=== PATIENT | female | born 1960 | race African-American/Black ===

== ENCOUNTER 2017-03-03 11:30 | Inpatient (IN) | payer OTHER ==
[2017-03-03 11:22] VITALS: BMI 27.8
[2017-03-10] MEDS ORDERED: ROPIVICAINE 0.2%/MORPH PF/KETOROLAC - 51ML DISP.SYRINGE IA ONE ×2 (06:14→06:57)
[2017-03-10] MEDS ORDERED: GABAPENTIN 300 MG CAPSULE (FP) PO ONE (06:14)
[2017-03-10] MEDS ORDERED: CELECOXIB 200 MG CAPSULE PO ONE (06:14)
[2017-03-10] MEDS ORDERED: oxyCODONE HCL 10 MG SUSTAINED ACTING TABLET PO ONE (06:14)
[2017-03-10] MEDS ORDERED: TRANEXAMIC ACID 1000 MG/10 ML VIAL IVPUSH ONE (06:14)
[2017-03-10] MEDS ORDERED: CEFAZOLIN 1 GM/D5W 50 ML IVPB ONE (06:14)
[2017-03-10] MEDS ORDERED: GABAPENTIN 300 MG CAPSULE (FP) ONE (06:23)
[2017-03-10] MEDS ORDERED: oxyCODONE HCL 10 MG SUSTAINED ACTING TABLET ONE (06:23)
[2017-03-10] MEDS ORDERED: CELECOXIB 200 MG CAPSULE ONE (06:24)
[2017-03-10] MEDS ORDERED: SODIUM CHLORIDE 0.9% P/F 10 ML VIAL IJ ONE (06:52)
[2017-03-10] MEDS ORDERED: DEXAMETHASONE SOD PHOSPHATE/PF 10 MG/ML SDV ONE (06:52)
[2017-03-10] MEDS ORDERED: MIDAZOLAM HCL 2 MG/2 ML SINGLE DOSE VIAL ONE ×2 (06:52→10:20)
[2017-03-10] MEDS ORDERED: ROPIVACAINE HCL 0.5% 30ML VIAL ONE (06:52)
[2017-03-10] MEDS ORDERED: TRANEXAMIC ACID 1000 MG/10 ML VIAL ONE ×2 (06:57→07:41)
[2017-03-10] MEDS ORDERED: ceFAZolin SODIUM 1 GM VIAL ONE ×2 (06:57→07:41)
[2017-03-10] MEDS ORDERED: VANCOMYCIN 1,000 MG VIAL (RESTRICTED TO ID ONLY) ONE (06:58)
[2017-03-10] MEDS ORDERED: SUCCINYLCHOLINE CHLORIDE 200 MG/10 ML VIAL ONE (07:41)
[2017-03-10] MEDS ORDERED: PROPOFOL 20 ML ONE ×3 (07:41)
[2017-03-10] MEDS ORDERED: DEXAMETHASONE SOD PHOSPHATE 4 MG/1 ML VIAL ONE (07:41)
[2017-03-10] MEDS ORDERED: ONDANSETRON 4 MG/2 ML VIAL ONE (07:41)
[2017-03-10] MEDS ORDERED: BUPIVACAINE HCL/PF 0.5% (5MG/ML) 10 ML VIAL ONE (08:00)
--- NOTE | 2017-03-10 08:06 | HP ---
Admitting History and Physical - Past Medical History Cardiovascular: Yes: HTN, Other (dyspnea on exertion - cardiology cleared) Pulmonary: Yes: COPD - Smoking History Smoking history: Current every day smoker Have you smoked in the past 12 months: Yes Aproximately how many cigarettes per day: 6 - Alcohol/Substance Use Hx Alcohol Use: Yes (OCCASIONAL) Home Medications - Allergies Allergies/Adverse Reactions: Allergies Allergy/AdvReac Type Severity Reaction Status Date / Time No Known Drug Allergies Allergy Verified 03/10/17 06:16 - Home Medications Home Medications: Ambulatory Orders Atorvastatin Ca [Lipitor] 40 mg PO DAILY 03/03/17 Budesonide/Formeterol Fumarate [SYMBICORT 160/4.5mcg -] 1 inh IH DAILY 03/03/17 Cholecalciferol (Vitamin D3) [Vitamin D3] 50,000 unit PO WEEKLY 03/03/17 Losartan/Hydrochlorothiazide [Hyzaar 50-12.5 Tablet] 1 each PO DAILY 03/03/17 Omeprazole 40 mg PO DAILY 03/03/17 Oxycodone HCl/Acetaminophen [Percocet 10-325 mg Tablet] 1 each PO Q4H PRN Ranitidine HCl [Zantac] 300 mg PO HS 03/03/17 Tiotropium [place] [Spiriva Respimat] 4 gm IH DAILY 03/03/17 Triamcinolone 0.025% Cream [Aristocort] 1 applic TP BID 03/03/17 Zolpidem Tartrate [Ambien] 10 mg PO HS 03/03/17 Physical Examination Vital Signs: Vital Signs Temperature 97.7 F 03/10/17 06:20 Pulse Rate 100 H 03/10/17 06:20 Respiratory Rate 20 03/10/17 06:20 Blood Pressure 114/82 03/10/17 06:20 O2 Sat by Pulse Oximetry (%) 97 03/10/17 06:30 Constitutional: Yes: Well Nourished, No Distress, Calm Eyes: Yes: WNL, Conjunctiva Clear HENT: Yes: WNL, Atraumatic, Normocephalic Neck: Yes: WNL, Supple Cardiovascular: Yes: WNL, Regular Rate and Rhythm Respiratory: Yes: WNL, Regular Gastrointestinal: Yes: WNL, Soft ...Rectal Exam: Yes: Deferred Musculoskeletal: Yes: Joint Stiffness, Joint Swelling, Muscle Pain, Muscle Weakness Extremities: Yes: WNL Edema: No Peripheral Pulses WNL: Yes Integumentary: Yes: WNL Neurological: Yes: WNL, Alert, Oriented ...Motor Strength: WNL Psychiatric: Yes: WNL, Alert, Oriented Labs: reviewed in chart Imaging - Results X-ray: Image Reviewed Assessment/Plan 56yo female with L knee OA for L TKA
[2017-03-10] MEDS ORDERED: oxyCODONE HCL 5 MG TABLET PO PRN (09:26)
[2017-03-10] MEDS ORDERED: ONDANSETRON 4 MG/2 ML VIAL IVPUSH PRN (09:26)
[2017-03-10] MEDS ORDERED: LACTATED RINGERS SOLUTION 1,000 ML IV SCH ×2 (09:30→11:15)
[2017-03-10] MEDS ORDERED: GABAPENTIN 300 MG CAPSULE (FP) PO SCH (10:00)
[2017-03-10] MEDS ORDERED: ONDANSETRON 4 MG/2 ML VIAL IVPB PRN (11:06)
[2017-03-10] MEDS ORDERED: MAG HYDROX/AL HYDROX/SIMETH 30 ML UNIT-DOSE CUP PO PRN (11:06)
[2017-03-10] MEDS ORDERED: MAGNESIUM HYDROX 2400MG/30ML ORAL SUSPENSION 30 ML CUP PO PRN (11:06)
--- NOTE | 2017-03-10 11:06 | OP ---
Operative Note - Note: Operative Date: 03/10/17 Pre-Operative Diagnosis: left knee DJD Operation: left TKA Post-Operative Diagnosis: Same as Pre-op Surgeon: Derick Thomas Dining Service Supervisor: Carlita Shah Anesthesia: Spinal Estimated Blood Loss (mls): 50
[2017-03-10] MEDS ORDERED: traMADol HCL 50 MG TABLET PO SCH (11:15)
[2017-03-10] MEDS ORDERED: KETOROLAC TROMETHAMINE 30 MG/1 ML VIAL IVPUSH SCH (11:15)
[2017-03-10] MEDS: traMADol HCL 50 MG TABLET PO SCH (12:00)
[2017-03-10] MEDS ORDERED: KETOROLAC TROMETHAMINE 30 MG/1 ML VIAL ONE (12:03)
[2017-03-10] MEDS ORDERED: traMADol HCL 50 MG TABLET ONE (12:04)
[2017-03-10] MEDS: oxyCODONE HCL 10 MG SUSTAINED ACTING TABLET PO SCH ×2 (15:35→21:31)
[2017-03-10] MEDS: CEFAZOLIN 1 GM/D5W 50 ML IVPB SCH (16:22)
[2017-03-10] MEDS: oxyCODONE HCL 5 MG TABLET PO PRN ×2 (16:29→20:49)
[2017-03-10] MEDS: ACETAMINOPHEN 325 MG TABLET (FP) PO SCH (17:55)
[2017-03-10] MEDS: KETOROLAC TROMETHAMINE 30 MG/1 ML VIAL IVPUSH SCH (17:56)
[2017-03-10] MEDS ORDERED: ACETAMINOPHEN 325 MG TABLET (FP) PO SCH (18:00)
[2017-03-10] MEDS ORDERED: PT OWN MED DRAWER 7, Y5N ONE (21:29)
[2017-03-10] MEDS: GABAPENTIN 300 MG CAPSULE (FP) PO SCH (21:30)
[2017-03-10] MEDS: RANITIDINE HCL 150 MG TABLET (FP) PO SCH (21:30)
[2017-03-10] MEDS: ASCORBIC ACID 500 MG TABLET (FP) PO SCH (21:30)
[2017-03-10] MEDS: CELECOXIB 200 MG CAPSULE PO SCH (21:31)
[2017-03-10] MEDS: TRIAMCINOLONE ACET 0.025% CREAM 15 GM TUBE TP SCH (21:32)
[2017-03-10] MEDS: SENNOSIDES/DOCUSATE COMBO (SENNA PLUS) TABLET (UD) PO SCH (21:33)
[2017-03-11] MEDS: KETOROLAC TROMETHAMINE 30 MG/1 ML VIAL IVPUSH SCH ×3 (00:23→12:37)
[2017-03-11] MEDS: traMADol HCL 50 MG TABLET PO SCH ×5 (00:24→23:43)
[2017-03-11] MEDS: ACETAMINOPHEN 325 MG TABLET (FP) PO SCH ×5 (00:25→23:43)
[2017-03-11] MEDS: CEFAZOLIN 1 GM/D5W 50 ML IVPB SCH (01:15)
--- NOTE | 2017-03-11 08:50 | PN ---
Progress Note (short form) - Note Progress Note: S: Pt. in a chair, eating breakfast. No c/o O: VAS 5/10 A/P: POD #1 s/p left tkr with adductor canal cath and selective tibial n. block. doing well. 1. Cath intact 2. Continue po pain meds as ordered
[2017-03-11 08:52] LABS: MCH 32.8 pg (25.7-33.7); MCHC 35.1 g/dl (32.0-36.0); MEAN CELL VOLUME 93.6 fl (80-96); MEAN PLT VOLUME 8.6 fl (7.5-11.1); PLATELET COUNT 170 K/MM3 (134-434); RDW 12.6 % (11.6-15.6); WHITE BLOOD COUNT 8.8 K/mm3 (4.0-10.0)
[2017-03-11] MEDS: MULTIVITAMINS (DAILY MVI) TABLET (FP) PO SCH (09:28)
[2017-03-11] MEDS: LOSARTAN 50MG/HCTZ 12.5MG 1 TAB (FP) PO SCH (09:28)
[2017-03-11] MEDS: CELECOXIB 200 MG CAPSULE PO SCH ×2 (09:28→21:19)
[2017-03-11] MEDS: GABAPENTIN 300 MG CAPSULE (FP) PO SCH ×2 (09:29→21:19)
[2017-03-11] MEDS: oxyCODONE HCL 10 MG SUSTAINED ACTING TABLET PO SCH ×2 (09:29→21:19)
[2017-03-11] MEDS: SENNOSIDES/DOCUSATE COMBO (SENNA PLUS) TABLET (UD) PO SCH ×2 (09:30→21:19)
[2017-03-11] MEDS: ASPIRIN 325 MG TABLET PO SCH (09:31)
[2017-03-11] MEDS: ATORVASTATIN CA 40 MG TABLET (FP) PO SCH (09:31)
[2017-03-11] MEDS: ASCORBIC ACID 500 MG TABLET (FP) PO SCH ×2 (09:31→21:19)
[2017-03-11 09:56] LABS: COCKROFT - GAULT 71.604; CREATININE 0.9 mg/dL (0.55-1.02)
[2017-03-11] MEDS ORDERED: PATIENT'S OWN MEDICATION (NON-FORMULARY) (Tiotropium Bromide [Spiriva Respimat] 4 GM) IH SCH (10:00)
[2017-03-11] MEDS: PANTOPRAZOLE 40 MG TABLET (FP) PO SCH (12:30)
[2017-03-11] MEDS: oxyCODONE HCL 5 MG TABLET PO PRN ×2 (12:38→18:08)
--- NOTE | 2017-03-11 13:11 | PN ---
Progress Note (short form) - Note Progress Note: Pt seen and examined. Comfortable. C/o diarrhea this morning. Afebrile Selected Entries 03/11/17 05:37 Temperature 97.8 F Pulse Rate 81 Respiratory 18 Rate Blood Pressure 121/78 Laboratory Tests 03/11/17 03/11/17 08:00 08:00 WBC 8.8 Hgb 11.6 Hct 33.2 Plt Count 170 Sodium 136 Potassium 3.4 L Chloride 100 Carbon Dioxide 27 Anion Gap 9 BUN 19 H Creatinine 0.9 Random Glucose 103 Gen: NAD LLE: c/d/i, NVID A/P 56yo female POD#1 s/p L TKA 1. PT/OOB - WBAT LLE 2. D/C to rehab tomorrow
[2017-03-11] MEDS ORDERED: PT OWN MED DRAWER 7, Y5N ONE ×2 (14:07→21:15)
[2017-03-11] MEDS: TRIAMCINOLONE ACET 0.025% CREAM 15 GM TUBE TP SCH ×2 (14:12→21:20)
[2017-03-11] MEDS ORDERED: POTASSIUM CHLORIDE TABS 20 MEQ TABLET.ER (FP) PO ONE (14:15)
--- NOTE | 2017-03-11 14:20 | SURG ---
Surgery Riveting Machine Operator Note Riveting Machine Operator: Carlita Shah PA-C Date of Service: 03/10/17 Diagnosis: left knee DJD Procedure: left TKA I was present for the entirety of the operative procedure. For further detail, please refer to operative report. Visit type - Case Type Case Type: Scheduled Admission - Emergency Emergency Visit: No - New patient This patient is new to me today: Yes Date on this admission: 03/10/17 - Critical Care Critical Care patient: No
[2017-03-11] MEDS ORDERED: ROPIVACAINE HCL 0.5% 30ML VIAL ONE (14:23)
--- NOTE | 2017-03-11 14:44 | PN ---
Progress Note (short form) - Note Progress Note: Adductor canal cath bolused with Ropiv 0.5% 20ml. Cath d/cd. Tip intact. No complications
[2017-03-11] MEDS: RANITIDINE HCL 150 MG TABLET (FP) PO SCH (21:19)
[2017-03-11] MEDS ORDERED: BUDESONIDE/FORMETEROL FUMARATE 160/4.5 mcg INHALER IH SCH (22:00)
[2017-03-12 06:42] VITALS: BP 119/68; PULSE 87; TEMP 97.6
[2017-03-12] MEDS: traMADol HCL 50 MG TABLET PO SCH (06:42)
[2017-03-12] MEDS: ACETAMINOPHEN 325 MG TABLET (FP) PO SCH (06:42)
[2017-03-12 07:42] LABS: MCH 32.6 pg (25.7-33.7); MCHC 34.8 g/dl (32.0-36.0); MEAN CELL VOLUME 93.8 fl (80-96); MEAN PLT VOLUME 7.9 fl (7.5-11.1); PLATELET COUNT 149 K/MM3 (134-434); RDW 12.7 % (11.6-15.6); WHITE BLOOD COUNT 6.7 K/mm3 (4.0-10.8)
[2017-03-12] MEDS: ASPIRIN 325 MG TABLET PO SCH (08:13)
[2017-03-12] MEDS: ASCORBIC ACID 500 MG TABLET (FP) PO SCH (09:23)
[2017-03-12] MEDS: GABAPENTIN 300 MG CAPSULE (FP) PO SCH (09:23)
[2017-03-12] MEDS: MULTIVITAMINS (DAILY MVI) TABLET (FP) PO SCH (09:23)
[2017-03-12] MEDS: PANTOPRAZOLE 40 MG TABLET (FP) PO SCH (09:23)
[2017-03-12] MEDS: ATORVASTATIN CA 40 MG TABLET (FP) PO SCH (09:23)
[2017-03-12] MEDS: oxyCODONE HCL 10 MG SUSTAINED ACTING TABLET PO SCH (09:23)
[2017-03-12] MEDS: SENNOSIDES/DOCUSATE COMBO (SENNA PLUS) TABLET (UD) PO SCH (09:23)
[2017-03-12] MEDS: CELECOXIB 200 MG CAPSULE PO SCH (09:23)
[2017-03-12] MEDS: LOSARTAN 50MG/HCTZ 12.5MG 1 TAB (FP) PO SCH (09:23)
--- NOTE | 2017-03-14 12:52 | PATH ---
Surgical Pathology Report Patient Name: TANMAY CASE V. [facility]. Rec. #: [id number] /Age/Gender: 1960 (Age: 56) / F Account: [id number] Location: [facility] Taken: 03/10/2017 Received: 03/10/2017 Reported: 03/14/2017 Physicians: Derick Thomas M.D. Specimen(s) Received BONE LEFT KNEE Clinical History Left knee osteoarthritis Final Diagnosis BONE, LEFT KNEE, TOTAL KNEE REPLACEMENT: DEGENERATIVE JOINT DISEASE. Electronically Signed Elissa Doyle M.D. Gross Description Received in formalin labeled "bone left knee," is a 10.0 x 9.0 x 1.8 cm aggregate of multiple avalos-yellow, irregular portions of bone and soft tissue. There is a 2.5 cm in greatest dimension area of eburnation present on one of the bones. The remaining articular surfaces are avalos-yellow and focally granular. The underlying trabecular bone is yellow and hard. Bread Distributor sections are submitted in one cassette, following decalcification. 03/11/2017 [facility]03/11/2017
--- NOTE | 2017-04-14 23:01 | SPEC ---
DATE OF OPERATION: 04/09/2017 PREOPERATIVE DIAGNOSIS: Left knee osteoarthritis. POSTOPERATIVE DIAGNOSIS: Left knee osteoarthritis. PROCEDURE: Left total knee replacement. ATTENDING: Stas Aparicio M.D. FIELD GEOLOGIST: Roxie You ANESTHESIA: Spinal plus sedation. ESTIMATED BLOOD LOSS: 50 mL. COMPLICATIONS: None. SPECIMENS: Resected bone was sent for pathology and analysis. DISPOSITION: The patient was transferred to the PACU in stable condition. IMPLANTS USED: [place] Triathlon size 1 femoral and tibial component, 39-mm patellar component, 11-mm posterior stabilized polyethylene component. INDICATION: This is a 56-year-old female who presented to the office complaining of left knee pain. She was seen and examined by Dr. Aparicio and diagnosed with severe left knee osteoarthritis. The patient was initially treated conservatively with injection on medications and physical therapy but failed conservative management. She continued to have severe pain and ambulatory dysfunction. She was then indicated for a left total knee replacement. The risks, benefits, and alternatives to the procedure were explained in great detail, and she elected to proceed with the surgery. On the day of surgery, the patient was taken to the operating room and placed on the OR table. Spinal anesthesia was administered by the anesthesiologist. The patient was then positioned supine on the table and all bony prominences were padded. A nonsterile tourniquet was placed on the proximal thigh. The knee was then prepped and draped in the usual sterile fashion and intravenous antibiotics were given for infection prophylaxis. A surgical time-out was then performed with the team, and the patients identity, procedure, side, availability of implants, and the administration of antibiotics was confirmed. The leg was then elevated and exsanguinated, and the tourniquet was inflated. With the knee flexed, a midline incision was made and carried down through the subcutaneous fat to the underlying retinaculum. A medial parapatellar arthrotomy was performed. This was followed by a subperiosteal dissection of the tissue off the proximal, medial tibia. A portion of fat pad was removed from under the patellar tendon, and a small portion of fat was excised off the distal supracondylar femur. The knee was then flexed further and the anterior horn of the lateral meniscus was released from the midline. Next, the anterior and posterior cruciate ligaments were transected. Osteophytes were removed from both the femur and tibia. Grade 4 changes were noted diffusely throughout the knee. Hohmann retractors were then placed around the distal femur. The starting drill was used to enter the intramedullary canal. The starting point had been chosen by checking the radiographs and anatomy. Proper alignment and intramedullary placement was then confirmed by placing the long narrow mirza into the femur. Next, the distal femoral cutting guide was adjusted to 6 degrees of valgus and pinned to the femur. The bone resection was assessed using an haroon-wing. An approximately 10mm distal cut was made and the cut pieces measured. Once this was complete, the sizing guide was used to determine which size femoral component should be used. Next, the appropriately sized 4-in-1 cutting block was then placed at the correct amount of external rotation and the haroon wing was used to assure that there would be no notching of the anterior cortex of the femur. Once this was done, Hohmann retractors were used to protect the medial and lateral collateral ligaments, and all appropriate bone cuts were made. Attention was then turned to the tibia. Hohmann retractors were used to translate the tibia anteriorly and protect the collateral ligaments. The medial and lateral menisci were removed. The extramedullary tibial alignment guide was then placed and adjusted for rotation, varus/valgus, and slope. The height of the cutting block was adjusted to the level of the desired bone resection and then pinned in place. The proximal tibia was then cut with a saw and the bone was removed and measured. Once this was completed, trial components were placed and the knee was taken through a full range of motion. Soft tissue balance was assessed in both flexion and extension and found to be appropriate. The knee was stable throughout the full range of motion. The knee was then put into extension and the patella everted. The synovium around the patella was circumscribed with electrocautery. A caliper was used to measure the patellar thickness and a saw was then used to resect the patella at the chondro-osseous junction. The cut surface was then sized and drilled for the appropriate patellar button, with care taken to medialize it. A trial patella was then placed and the knee was again taken through a full range of motion. The knee was found to have both good balance and good patellar tracking. All of the components were removed except the tibial base plate. The appropriate instrumentation was used to drill and punch the proximal tibia for the keel of the final component. All bony surfaces were then cleaned with pulsatile lavage and dried. Bone cement was then prepared on the back table, and final components were cemented in place in the usual fashion. Extruded cement was removed. The polyethylene trial was placed, the knee was put into extension, and axial pressure was applied for compression while the cement hardened. The patellar button was similarly cemented into place. Once the cement had hardened, the knee was taken through a full range of motion to assess stability, balance, and patellar tracking. This was found to be optimal and the trial polyethylene was exchanged for the appropriately sized real implant. The wound was then thoroughly irrigated with normal saline. No. 1 Polysorb and 0 VLoc 180 barbed sutures were used to close the arthrotomy. No. 1 Polysorb and 2-0 Polysorb sutures were used in the subcutaneous tissues. The skin was closed using both 3-0 VLoc 90 suture in a running subcuticular fashion and SwiftSet skin adhesive. Once this was completed a sterile Aquacel dressing and compressive Peter-wrap was applied. The tourniquet was then deflated and the patient was awakened and taken to the PACU in stable condition. STAS APARICIO M.D. [id number]
== END 2017-03-12 11:10 | DRG 302 ==
LOC: FM/S 03-10 05:45
PROVIDERS: ADMIT Student in an Organized Health Care Education/Training Program; ATTEND Student in an Organized Health Care Education/Training Program
PROC: 0SRD0JZ Replacement of Left Knee Joint with Synthetic Substitute, Open Approach (ICD-10-PCS; principal; 2017-03-10 08:44)
DX: M17.12 Unilateral primary osteoarthritis, left knee (principal); I10 Essential (primary) hypertension; J44.9 Chronic obstructive pulmonary disease, unspecified; F17.210 Nicotine dependence, cigarettes, uncomplicated; K21.9 Gastro-esophageal reflux disease without esophagitis; E78.00 Pure hypercholesterolemia, unspecified; R19.7 Diarrhea, unspecified
CPT/HCPCS: 36415; 73560-TC-LT; 80048; 85027; 88304-TC; 88311-TC; 94010; 94760; 97010-GP; 97116-GP; 97161-GP

== ENCOUNTER 2024-07-06 12:49 | Emergency (ER) | payer OTHER ==
[2024-07-06 13:19] VITALS: PULSE 71; TEMP 97.8; BMI 26.9
[2024-07-06] MEDS ORDERED: ACETAMINOPHEN INJECTION 100 ML IVPB ONE (13:40)
[2024-07-06] MEDS: ACETAMINOPHEN 1000 MG/100 ML BAG IVPB ONE (14:40)
[2024-07-06 14:44] LABS: BASO % 1.1 % (0-2.0); EOS % 3.1 % (0-4.5); HEMATOCRIT 40.1 % (32.4-45.2); HEMOGLOBIN 13.7 GM/dL (10.7-15.3); LYMPH % 24.2 % (8-40); MCH 34.8 pg (25.7-33.7); MCHC 34.2 g/dl (32.0-36.0); MEAN CELL VOLUME 101.9 fl (80-96); MEAN PLT VOLUME 8.3 fl (7.5-11.1); MONO % 3.1 % (3.8-10.2); NEUT % 68.5 % (42.8-82.8); PLATELET COUNT 198 10^3/uL (134-434); RBC 3.94 M/mm3 (3.60-5.2); RDW 14.5 % (11.6-15.6); WHITE BLOOD COUNT 6.9 K/mm3 (4.0-10.0)
[2024-07-06 14:53] LABS: INR 0.95 (0.83-1.09); PROTHROMBIN TIME (PATIENT) 10.9 SEC (9.7-13.0)
[2024-07-06 14:54] VITALS: RESP 20
[2024-07-06 14:55] LABS: ACTIVATED PTT 34.7 SECONDS (25.2-36.5)
[2024-07-06 15:18] LABS: POTASSIUM 4.4 mmol/L (3.5-5.1)
[2024-07-06 15:20] LABS: ALBUMIN 4.7 g/dl (3.4-5.0); BLOOD UREA NITROGEN 17.3 mg/dL (7-18); CALCIUM 10.6 mg/dL (8.5-10.1)
[2024-07-06 15:24] LABS: CREATININE 0.7 mg/dL (0.55-1.3)
[2024-07-06 15:25] LABS: BILIRUBIN,TOTAL 0.7 mg/dL (0.2-1); TOT PROT 7.9 g/dl (6.4-8.2)
[2024-07-06 17:31] VITALS: BP 122/90
[2024-07-06] MEDS ORDERED: IBUPROFEN 400 MG TABLET (FP) PO ONE (19:13)
[2024-07-06] MEDS: IBUPROFEN 200 MG TABLET PO ONE ×2 (19:29→19:30)
== END 2024-07-06 19:29 | disposition home or self-care (01) ==
LOC: JER 12:49
PROC: 3E033NZ Introduction of Analgesics, Hypnotics, Sedatives into Peripheral Vein, Percutaneous Approach (ICD-10-PCS; principal; 2024-07-06)
DX: S02.5XXA Fracture of tooth (traumatic), initial encounter for closed fracture (principal); M25.512 Pain in left shoulder; M25.511 Pain in right shoulder; M54.2 Cervicalgia; W10.1XXA Fall (on)(from) sidewalk curb, initial encounter
CPT/HCPCS: 36415; 70450-TC; 71045-TC-FY; 72125-TC; 73010-TC-FY; 73030-TC-RT-FY; 73562-TC-LT-FY; 73562-TC-RT-FY; 80053; 85025; 85610; 85730; 86850; 86900; 86901; 96374; 99285-25; J0131

== ENCOUNTER 2024-08-16 04:24 | Day surgery (SDC) | payer OTHER ==
[2024-08-14 12:24] VITALS: BMI 25.9
[2024-08-16] MEDS ORDERED: LIDOCAINE HCL/PF 1% SDV 5ML VIAL ONE (07:29)
[2024-08-16] MEDS ORDERED: DEXAMETHASONE SOD PHOSPHATE 10 MG/1 ML VIAL ONE (07:29)
[2024-08-16] MEDS ORDERED: ACETAMINOPHEN 500 MG TABLET (FP) PO PRN (09:53)
[2024-08-16 11:12] VITALS: RESP 18
[2024-08-16] MEDS: LIDOCAINE HCL 1% PRESERVATIVE FREE - 30ML VIAL IJ ONE ×2 (15:43)
[2024-08-16] MEDS: DEXAMETHASONE SOD PHOSPHATE 10 MG/1 ML VIAL IVPUSH ONE (15:43)
[2024-08-16] MEDS: IOHEXOL 180 MG/1 ML ML IJ ONE (15:44)
[2024-08-16 16:33] VITALS: BP 129/74; PULSE 77; TEMP 97.2
== END 2024-08-16 16:15 | disposition home or self-care (01) ==
LOC: JASU-SURG 04:24
PROVIDERS: ATTEND Pain Medicine Pain Medicine
PROC: 3E0R33Z Introduction of Anti-inflammatory into Spinal Canal, Percutaneous Approach (ICD-10-PCS; principal; 2024-08-16 13:30)
DX: M54.12 Radiculopathy, cervical region (principal)
CPT/HCPCS: 76000-TC-FY; J1100

== ENCOUNTER 2024-09-13 04:26 | Day surgery (SDC) | payer OTHER ==
[2024-09-11 14:46] VITALS: BMI 22.4
[2024-09-13] MEDS ORDERED: ACETAMINOPHEN 500 MG TABLET (FP) PO PRN (09:16)
[2024-09-13 14:17] VITALS: BP 119/79; PULSE 78; RESP 16; TEMP 98
== END 2024-09-13 14:45 | disposition home or self-care (01) ==
LOC: JASU-SURG 04:26
PROVIDERS: ATTEND Pain Medicine Pain Medicine
PROC: 3E0R33Z Introduction of Anti-inflammatory into Spinal Canal, Percutaneous Approach (ICD-10-PCS; principal; 2024-09-13 13:53)
DX: M54.12 Radiculopathy, cervical region (principal)
CPT/HCPCS: 76000-TC-FY

== ENCOUNTER 2024-10-16 06:07 | Day surgery (SDC) | payer OTHER ==
[2024-10-12 13:35] VITALS: BMI 25.0
[2024-10-16] MEDS ORDERED: FENTANYL CITRATE/PF 50 MCG/ML VIAL ONE (07:32)
[2024-10-16] MEDS ORDERED: MIDAZOLAM HCL 2 MG/2 ML SINGLE DOSE VIAL ONE ×2 (07:32→08:02)
[2024-10-16] MEDS ORDERED: ROPIVACAINE HCL/PF 100 MG/20 ML VIAL ONE (07:32)
[2024-10-16] MEDS ORDERED: BUPIVACAINE HCL/PF 0.5% (5MG/ML) 10 ML VIAL ONE (07:33)
[2024-10-16] MEDS ORDERED: VANCOMYCIN 1,000 MG VIAL (RESTRICTED TO ID ONLY) ONE (07:42)
[2024-10-16] MEDS ORDERED: PROPOFOL 60 ML ONE (08:01)
[2024-10-16] MEDS ORDERED: DEXAMETHASONE SOD PHOSPHATE 4 MG/1 ML VIAL ONE (08:02)
[2024-10-16] MEDS ORDERED: ceFAZolin SODIUM 1 GM VIAL ONE (08:02)
[2024-10-16] MEDS ORDERED: TRANEXAMIC ACID 1000 MG/10 ML VIAL ONE ×2 (08:02→10:01)
[2024-10-16] MEDS ORDERED: BUPIVICAINE 0.25%/MORPH PF/KETOROLAC - 51ML DISP.SYRINGE IA ONE (09:36)
[2024-10-16] MEDS ORDERED: KETOROLAC TROMETHAMINE 30 MG/1 ML VIAL ONE (10:01)
[2024-10-16] MEDS ORDERED: oxyCODONE HCL 5 MG TABLET PO PRN (10:31)
[2024-10-16] MEDS ORDERED: ONDANSETRON 4 MG/2 ML VIAL IVPUSH PRN ×2 (10:33→11:03)
[2024-10-16] MEDS ORDERED: LACTATED RINGERS SOLUTION 1,000 ML IV SCH (10:45)
[2024-10-16] MEDS ORDERED: MAG HYDROX/AL HYDROX/SIMETH 30 ML UNIT-DOSE CUP PO PRN (11:03)
[2024-10-16] MEDS ORDERED: ALBUTEROL SO4 HFA INHALER IH PRN (11:07)
[2024-10-16] MEDS ORDERED: ACETAMINOPHEN INJECTION 100 ML ONE (11:54)
[2024-10-16] MEDS: ACETAMINOPHEN 1000 MG/100 ML BAG IVPB ONE (12:01)
[2024-10-16] MEDS: KETOROLAC TROMETHAMINE 30 MG/1 ML VIAL IVPUSH SCH (16:07)
[2024-10-16] MEDS: CEFAZOLIN SODIUM 2 GM in DEXTROSE 5%-WATER 100 ML IVPB SCH (16:08)
[2024-10-16] MEDS: GABAPENTIN 300 MG CAPSULE PO SCH (16:08)
[2024-10-16] MEDS: ACETAMINOPHEN 500 MG TABLET (FP) PO SCH (18:59)
[2024-10-16] MEDS: oxyCODONE HCL 5 MG TABLET PO PRN (19:01)
[2024-10-16] MEDS ORDERED: DEXTROMETHORPHAN HBR PO SCH (22:00)
[2024-10-16] MEDS ORDERED: PATIENT'S OWN MEDICATION (NON-FORMULARY) (Icosapent Ethyl [Icosapent Ethyl] 1 GM Capsule) PO SCH (22:00)
[2024-10-16] MEDS ORDERED: GABAPENTIN 300 MG CAPSULE PO SCH (22:00)
[2024-10-16] MEDS ORDERED: BUPROPION PO SCH (22:00)
[2024-10-16] MEDS ORDERED: [UNRECOGNIZED DRUG - OTHER] PO SCH (22:00)
[2024-10-16] MEDS: SENNOSIDES/DOCUSATE COMBO (SENNA PLUS) TABLET (UD) PO SCH (22:35)
[2024-10-17] MEDS: LACTATED RINGERS SOLUTION 1,000 ML IV SCH (07:11)
[2024-10-17 08:34] LABS: HEMATOCRIT 30.8 % (32.4-45.2); HEMOGLOBIN 10.2 G/dL (10.7-15.3); MCH 34.4 pg (25.7-33.7); MCHC 33.1 g/dl (32.0-36.0); MEAN CELL VOLUME 103.6 fl (80-96); MEAN PLT VOLUME 8.6 fl (7.5-11.1); PLATELET COUNT 181.3 10^3/uL (134-434); RBC 2.97 10^6/uL (3.60-5.2); RDW 12.5 % (11.6-15.6); WHITE BLOOD COUNT 11.8 10^3/uL (4.0-10.8)
[2024-10-17 08:37] LABS: POTASSIUM 4.1 mmol/L (3.5-5.1)
[2024-10-17] MEDS: MULTIVITAMINS (DAILY MVI) TABLET (FP) PO SCH (08:55)
[2024-10-17] MEDS: PANTOPRAZOLE 40 MG TABLET PO SCH (08:56)
[2024-10-17] MEDS: ASPIRIN COATED 81 MG TABLET.EC PO SCH (08:56)
[2024-10-17] MEDS: LOSARTAN 50MG/HCTZ 12.5MG 1 TAB PO SCH (08:58)
[2024-10-17] MEDS: BUDESONIDE/FORMETEROL FUMARATE 160/4.5 mcg INHALER IH SCH (09:01)
[2024-10-17 09:49] VITALS: RESP 18
[2024-10-17] MEDS ORDERED: PATIENT'S OWN MEDICATION (NON-FORMULARY) (Losartan/Hydrochlorothiazide [Losartan-Hctz 100- PO SCH (10:00)
[2024-10-17] MEDS ORDERED: PATIENT'S OWN MEDICATION (NON-FORMULARY) (Bempedoic Acid/Ezetimibe [Nexlizet 180-10 Mg Tab PO SCH (10:00)
[2024-10-17] MEDS ORDERED: TIOTROPIUM BROMIDE 2.5 MCG (SPIRIVA) RESPIMAT INHALER IH SCH (10:00)
[2024-10-17 14:32] VITALS: BP 120/70; PULSE 72; TEMP 97.3
[2024-10-17] MEDS ORDERED: ATORVASTATIN CA 80 MG TABLET (FP) PO SCH (22:00)
== END 2024-10-17 15:17 | disposition home or self-care (01) ==
LOC: FASUSAT 06:07 → SUATTDRO 06:07 → FM/S 13:02 → FASUSAT 10-17 15:17
PROC: 0SRC0JA Replacement of Right Knee Joint with Synthetic Substitute, Uncemented, Open Approach (ICD-10-PCS; principal; 2024-10-16 09:05)
DX: M17.11 Unilateral primary osteoarthritis, right knee (principal)
CPT/HCPCS: 36415; 73560-TC-RT-FY; 80048; 85027; 88305-TC; 88311-TC; 94760; 97162-GP; C1776; J0131